=== PATIENT | male | born 1985 | race Two or more races ===

== ENCOUNTER 2025-03-08 09:05 | Emergency (ER) | payer OTHER ==
[~2025-03-08] VITALS: Ht 188 cm; Wt 145.1 kg
[2025-03-08 09:08] VITALS: O2SAT 97
[2025-03-08] MEDS ORDERED: LIDOCAINE HCL 2% 20 ML VIAL ONE (09:16)
[2025-03-08] MEDS ORDERED: LIDOCAINE 2%-EPI 1:100,000 20 ML VIAL ONE (09:16)
[2025-03-08] MEDS ORDERED: NEOMY/BACITRA/POLYMYXIN B OINT UD PACKET TP ONE (09:16)
[2025-03-08] MEDS ORDERED: NEOMY/BACITRAC/POLYMI OINT 28.35 GM TUBE ONE (09:58)
[2025-03-08] MEDS: LIDOCAINE 2%-EPI 1:100,000 20 ML VIAL IJ ONE (10:03)
[2025-03-08] MEDS: NEOMY/BACITRA/POLYMYXIN B OINT UD PACKET TP ONE (10:04)
[2025-03-08] MEDS: BACITRACIN ZINC OINT 15 GM TUBE TOP ONE (10:11)
== END 2025-03-08 10:13 | disposition home or self-care (01) ==
LOC: ER 09:05
DX: S01.81XA Laceration without foreign body of other part of head, initial encounter (principal); W18.39XA Other fall on same level, initial encounter; Y93.89 Activity, other specified; Y92.89 Other specified places as the place of occurrence of the external cause; Y99.8 Other external cause status
CPT/HCPCS: A4606; A4663; J3490